=== PATIENT | male | born 1995 | race Caucasian/White ===

== ENCOUNTER 2020-09-16 17:08 | Emergency (ER) | payer OTHER, MEDICAID, SELFPAY ==
[2020-09-16 17:22] VITALS: BP 136/63; PULSE 94; RESP 18; TEMP 36.7; O2SAT 99; BMI 23.0
--- NOTE | 2020-09-16 17:29 | DI.RAD.S_ITS ---
PROCEDURE: XR FOOT LT MIN 3V INDICATIONS: L ankle injury. New lump on foot TECHNIQUE: 3 views of the foot were acquired. COMPARISON: [facility], CR, XR ANKLE LT MIN 3V, 09/16/2020, 17:25. FINDINGS: Bones: No fractures or dislocations. No suspicious bony lesions. Soft tissues: No tibiotalar joint effusion. Achilles tendon appears normal. IMPRESSION: No acute osseous abnormalities. Dictated by: Bhavana Fonseca M.D. on 09/16/2020 at 16:50 Approved by: Bhavana Fonseca M.D. on 09/16/2020 at 16:52
--- NOTE | 2020-09-16 17:29 | DI.RAD.S_ITS ---
PROCEDURE: XR ANKLE LT MIN 3V INDICATIONS: L ankle injury TECHNIQUE: 3 views of the ankle were acquired. COMPARISON: [facility], CR, XR FOOT LT MIN 3V, 09/16/2020, 17:25. FINDINGS: Bones: No fractures or dislocations. Ankle mortise is normally aligned. No suspicious bony lesions. Soft tissues: No tibiotalar joint effusion. Achilles tendon appears normal. IMPRESSION: No acute osseous abnormalities. Dictated by: Bhavana Fonseca M.D. on 09/16/2020 at 16:47 Approved by: Bhavana Fonseca M.D. on 09/16/2020 at 16:50
--- NOTE | 2020-09-16 19:56 | ED.LOWEXIN ---
HPI - Extremity Injury (Lower) General Chief Complaint: Extremity Injury, Lower Stated Complaint: ankle fracture, in pain still unable to walk Time Seen by Provider: 09/16/20 19:16 Source: patient and family Mode of arrival: Wheelchair Limitations: no limitations History of Present Illness HPI Narrative: Patient is a 25-year-old male who presents with left ankle pain and bruising. [place] injured it 5 [place] He apparently was evaluated at a walk-in clinic at [place] told he had what sounds like some type of an avulsion fracture. He was given a walking boot and crutches. He continues to have pain. He has been taking Tylenol without any improvement. Dad brought him to ED for further evaluation. No other injury. Related Data Previous Rx's Medication Instructions Recorded hydrocodone 5 mg-acetaminophen 325 1 tab PO Q6H PRN #10 tab 09/16/20 mg tablet Allergies Allergy/AdvReac Type Severity Reaction Status Date / Time morphine AdvReac Intermediate Nausea Verified 09/16/20 17:22 Review of Systems Review of Systems Narrative: GENERAL: Denies chills,fever HEENT: Denies throat pain RESPIRATORY: Denies dyspnea, cough, wheezing CARDIOVASCULAR: Denies chest pain, palpitations GASTROINTESTINAL: Denies nausea, vomiting MUSCULOSKELETAL: See HPI SKIN: No rash, no laceration, no pruritus NEUROLOGIC: Denies weakness, dizziness, headache, numbness 8 point review of systems is negative except for those stated above and HPI Patient History Social History Smoking Status: Never smoker Smoking Status: Never smoker alcohol intake frequency: a few times a week Substance Use Type: marijuana Exam Initial Vital Signs Initial Vital Signs: Vital Signs Temperature 98.1 F 09/16/20 17:22 Pulse Rate 94 H 09/16/20 17:22 Respiratory Rate 18 09/16/20 17:22 Blood Pressure 136/63 09/16/20 17:22 Pulse Oximetry 99 09/16/20 17:22 GENERAL: Well-appearing, well-nourished and in no acute distress. CARDIOVASCULAR: peripheral pulses in tact, cap refill <2 sec RESPIRATORY: No respiratory distress, speaks in full sentences without difficulty EXTREMITIES: Normal range of motion, no clubbing or edema. Neurovascularly intact Left lower extremity tenderness over fibula minimal swelling some contusion noted distal pedal pulse intact Achilles intact NEUROLOGICAL: Cranial nerves II through XII grossly intact. Normal gait and speech. SKIN: Warm, dry, no petechiae, no rashes or lesions. Course Orders Ordered: ED Orders 09/16/20 17:29 XR ankle LT min 3V Stat XR foot LT min 3V Stat Vital Signs Vital signs: Vital Signs - 8 hr 09/16/20 17:22 Temperature 98.1 F Pulse Rate 94 H Respiratory Rate 18 Blood Pressure 136/63 Pulse Oximetry 99 MDM - Extremity Injury (Lower) Imaging Data Extremity x-ray #1: Radiologist's Impression: PROCEDURE: XR ANKLE LT MIN 3V INDICATIONS: L ankle injury TECHNIQUE: 3 views of the ankle were acquired. COMPARISON: [facility], , XR FOOT LT MIN 3V, 09/16/2020, 17:25. FINDINGS: Bones: No fractures or dislocations. Ankle mortise is normally aligned. No suspicious bony lesions. Soft tissues: No tibiotalar joint effusion. Achilles tendon appears normal. IMPRESSION: No acute osseous abnormalities. Dictated by: Bhavana Fonseca M.D. on 09/16/2020 at 16:47 Extremity x-ray #2: Radiologist's Impression: PROCEDURE: XR FOOT LT MIN 3V INDICATIONS: L ankle injury. New lump on foot TECHNIQUE: 3 views of the foot were acquired. COMPARISON: [facility], XR ANKLE LT MIN 3V, 09/16/2020, 17:25. FINDINGS: Bones: No fractures or dislocations. No suspicious bony lesions. Soft tissues: No tibiotalar joint effusion. Achilles tendon appears normal. IMPRESSION: No acute osseous abnormalities. Dictated by: Bhavana Fonseca M.D. on 09/16/2020 at 16:50 MDM Narrative Medical decision making narrative: the patient is quite tender. X-ray maybe shows extremely small of avulsion fracture I operated at this time I recommend follow-up with Orthopedics and continue wearing boot. On x-ray really overall appears normal at this time I do not think he needs a CT. Discharge Plan Departure Patient Disposition: Home Clinical Impression: Left ankle sprain Qualifiers: Encounter type: initial encounter Involved ligament of ankle: other ligament Qualified Code(s): S93.492A - Sprain of other ligament of left ankle, initial encounter Instructions: DI for Ankle Sprain Activity Restrictions/Additional Instructions: *You have been diagnosed with left ankle sprain *What to do: At this time wear ankle in a boot. Use crutches as needed. Please follow-up with orthopedics pain. This will take about 4-6 weeks to heal *Continue to take medications as directed Motrin 800 mg every 8 hours only if needed for pain, and only for 1 week [place] 1 tablet every 6 hours if needed for severe pain *Follow up with your primary care provider in 2-3 days *Return to ER if you should have increasing, pain swelling numbness tingling weakness or any new, worsening or concerning symptoms CONTROLLED SUBSTANCE DISCHARGE (Narcotoic/benzodiazepine/Flexeril/Phenergan) 1. You have been prescribed narcotic medications, it does have acetaminophen/Tylenol/paracetamol in it, DO NOT TAKE MORE THAN 4,00mg in 24 hours of Tylenol. TRAMADOL DOES NOT CONTAIN TYLENOL 2. Please understand that we cannot provide further refills of narcotics, benzodiazepines or controlled substances through the ED and her pain management will need to be through your provider. 3. While on these medications you cannot drive or operate heavy machinery. 4. You cannot sign legal documents or perform any duties such as this. 5. As long as you're taking opiate pain medications he should also be taking a stool softener such as Colace, Dulcolax, MiraLAX or prune juice, to help avoid constipation. Prescriptions: New hydrocodone-acetaminophen 5-325 mg tablet 1 tab PO Q6H PRN (Reason: pain) Qty: 10 RF: 0 Referrals: [facility] [Provider Group]
[2020-09-16 20:19] VITALS: BP 125/79; PULSE 65; RESP 14; O2SAT 99
== END 2020-09-16 20:19 | disposition home or self-care (01) ==
PROVIDERS: Emergency Provider Emergency Medicine
DX: S93.492A Sprain of other ligament of left ankle, initial encounter (principal); X58.XXXA Exposure to other specified factors, initial encounter
CPT/HCPCS: 73610; 73630; 99281; 99283